=== PATIENT | male | born 1990 | race Caucasian/White ===

== ENCOUNTER 2023-11-12 14:59 | Emergency (ER) | payer OTHER, SELFPAY ==
--- NOTE | ~2023-11-12 | CT_ITS ---
CT facial bones wo con Ordering provider: Carlos Howard MD History: . left facial swelling . Comparison: None. Technique: Thin slice axial CT of the facial bones was performed without contrast. Coronal and sagit jessenia reformatted images were also obtained. Radiation reduction technique utilized. DLP is 657.46 mGy. FINDINGS: PARANASAL SINUSES: Bilateral ethmoid and maxillary sinus disease. BONES: No facial fracture including no nasal bone fracture. ORBITS AND SUPERFICIAL SOFT TISSUES: The optic globes and orbits are normal. The superficial soft tis sues shows fat stranding with edema and swelling in the left facial subcutaneous tissues. No focal le sions or abscesses formation seen. The left masseter muscle is more prominent than the right. There e valuation advised. VISUALIZED MASTOIDS: Well aerated. LIMITED VISUALIZED BRAIN PARENCHYMA: Normal. IMPRESSION: No facial fracture. Highly suggestive cellulitis in the left side of the face with no definite abscess formation. Clinica l correlation and follow-up advised. Reviewed, dictated and finalized at location A. IMPRESSION: No facial fracture. Highly suggestive cellulitis in the left side of the face with no definite absc ess formation. Clinical correlation and follow-up advised.
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
[2023-11-12 15:04] VITALS: BP 138/82; PULSE 73; RESP 18; TEMP 36.1; O2SAT 99
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
[2023-11-12 17:33] VITALS: BP 130/80; PULSE 77; RESP 16; TEMP 36.6; O2SAT 99
== END 2023-11-12 17:35 | disposition home or self-care (01) ==
PROVIDERS: Emergency Provider Emergency Medicine
DX: S06.0X0A Concussion without loss of consciousness, initial encounter (principal); T70.0XXA Otitic barotrauma, initial encounter; F17.210 Nicotine dependence, cigarettes, uncomplicated; Y04.0XXA Assault by unarmed brawl or fight, initial encounter
CPT/HCPCS: 70450; 70486; 72125; 99284